=== PATIENT | female | born 1960 | race American Indian/Alaskan Native ===

== ENCOUNTER 2018-07-28 10:26 | Emergency (ER) | payer BC ==
[2018-07-28 10:56] VITALS: RESP 18
--- NOTE | 2018-07-28 11:31 | ED PDOC ---
Arrival/HPI - General Historian: Patient - History of Present Illness Narrative History of Present Illness (Text): 07/28/18 11:22 58yo female with pmhx of hypertension who present with complaint of generalized bodyache, nasal congestion, sore throat, nonproductive cough, fever, chills x 3days. States she took the Flu vaccine few weeks ago. Reports that she juct came back from [place]. Denies nausea, vomiting, abdominal pain, chest pain, urinary symptoms, sick contact, any other complaint. <Alicia Mix A - Last Filed: 07/28/18 15:50> <Julio Lincoln - Last Filed: 07/30/18 20:58> - General Chief Complaint: Flu-like Symptoms Time Seen by Provider: 07/28/18 10:54 Past Medical History - Provider Review Nursing Documentation Reviewed: Yes - Cardiac Hx Hypertension: Yes - Hematological/Oncological Hx Cancer: Yes (Left breast) - Psychiatric Hx Substance Use: No - Surgical History Hx Breast Biopsy: Yes (Left breast) Hx Hysterectomy: Yes Other/Comment: Left lumpectomy <Alicia Mix A - Last Filed: 07/28/18 15:50> Family/Social History - Physician Review Nursing Documentation Reviewed: Yes Family/Social History: Unknown Family HX Smoking Status: Never Smoked Hx Alcohol Use: No Hx Substance Use: No <Alicia Mix A - Last Filed: 07/28/18 15:50> Allergies/Home Meds <Alicia Mix A - Last Filed: 07/28/18 15:50> <Julio Lincoln - Last Filed: 07/30/18 20:58> Allergies/Adverse Reactions: Allergies Penicillins Allergy (Verified 07/28/18 11:02) ANAPHYLAXIS Home Medications: Home Meds Medication Instructions Recorded Confirmed Htn Med 07/28/18 RX: Aspirin [Aspirin Chewable] 81 mg PO DAILY 07/28/18 07/28/18 Review of Systems - Physician Review All systems were reviewed & negative as marked: Yes - Review of Systems Constitutional: Fatigue Eyes: Normal ENT: Other (Nasal congestion) Respiratory: Cough Cardiovascular: Normal Gastrointestinal: Normal Genitourinary Female: Normal Musculoskeletal: Normal Skin: Normal Neurological: Normal Endocrine: Normal Hemo/Lymphatic: Normal Psychiatric: Normal <Alicia Mix A - Last Filed: 07/28/18 15:50> Physical Exam Vital Signs Reviewed: Yes Vital Signs Temp Pulse Resp BP Pulse Ox 07/28/18 10:55 100.1 F H 96 H 18 146/83 98 Temperature: Febrile Blood Pressure: Normal Pulse: Regular Respiratory Rate: Normal Appearance: Positive for: Well-Appearing, Non-Toxic, Comfortable Pain Distress: None Mental Status: Positive for: Alert and Oriented X 3 - Systems Exam Head: Present: Atraumatic, Normocephalic Pupils: Present: PERRL Extroacular Muscles: Present: EOMI Conjunctiva: Present: Normal Mouth: Present: Moist Mucous Membranes Neck: Present: Normal Range of Motion Respiratory/Chest: Present: Clear to Auscultation, Good Air Exchange. No: Respiratory Distress, Accessory Muscle Use, Wheezes, Decreased Breath Sounds, Rales, Retracting, Rhonchi, Tachypneic Cardiovascular: Present: Regular Rate and Rhythm, Normal S1, S2. No: Murmurs Abdomen: No: Tenderness, Distention, Peritoneal Signs Back: Present: Normal Inspection Upper Extremity: Present: Normal Inspection. No: Cyanosis, Edema Lower Extremity: Present: Normal Inspection. No: Edema Neurological: Present: GCS=15, CN II-XII Intact, Speech Normal Skin: Present: Warm, Dry, Normal Color. No: Rashes Psychiatric: Present: Alert, Oriented x 3, Normal Insight, Normal Concentration <Diru,Happiness A - Last Filed: 07/28/18 15:50> Vital Signs Temp Pulse Resp BP Pulse Ox 07/28/18 12:41 98.1 F 75 18 148/85 97 07/28/18 12:39 98.1 F 07/28/18 10:55 100.1 F H 96 H 18 146/83 98 <Julio Lincoln - Last Filed: 07/30/18 20:58> Medical Decision Making ED Course and Treatment: 07/28/18 15:51 58yo female in ED with complaint of cough, fever, generalized bodyache, sore throat x 3days. She was febrile on presentation. Rapid strep and flu was negative. She had leukocytosis , likely secondary to viral syndrome CXR NAD Pt was placed on Tamiflu and Zpack. Advised to drink plenty of fluid and rest Referred to her PMD. TRT ED for any new or worsening symptoms - RAD Interpretation Radiology Orders: 07/28/18 11:18 CHEST TWO VIEWS (PA/LAT) [RAD] Stat - Medication Orders Current Medication Orders: Discontinued Medications Ibuprofen (Motrin Tab) 600 mg PO STAT STA Stop: 07/28/18 11:20 <Alicia Mix A - Last Filed: 07/28/18 15:50> - Lab Interpretations Microbiology Results: Microbiology Results 07/28/18 11:20 Throat Group A Strep Throat Culture - Final NO BETA STREP GROUP A ISOLATED. Lab Results: 07/28/18 12:30 07/28/18 12:58 Lab Results 07/28/18 12:58: Sodium 139, Potassium 3.4 L, Chloride 107, Carbon Dioxide 24, Anion Gap 11, BUN 12, Creatinine 0.7, Est GFR ( Amer) > 60, Est GFR (Non- Af Amer) > 60, Random Glucose 104, Calcium 9.1, Total Bilirubin 0.6, AST 20, ALT 21, Alkaline Phosphatase 94, Total Protein 8.1, Albumin 4.3, Globulin 3.8, Albumin/Globulin Ratio 1.1 07/28/18 12:30: PT 12.7 H, INR 1.10, APTT 39.3 H 07/28/18 12:30: WBC 14.2 H, RBC 4.59, Hgb 12.4, Hct 37.5, MCV 81.7, MCH 27.0, MCHC 33.1, RDW 14.8 H, Plt Count 295, MPV 9.4, Gran % 73.6 H, Lymph % (Auto) 20.7 L, [place] % (Auto) 3.9, Eos % (Auto) 1.5, Baso % (Auto) 0.3, Gran # 10.45 H, Lymph # (Auto) 2.9, [place] # (Auto) 0.6, Eos # (Auto) 0.2, Baso # (Auto) 0.04 07/28/18 11:20: Urine Color Yellow, Urine Appearance Clear, Urine pH 6.0, Ur Specific [place] 1.010, Urine Protein Negative, Urine Glucose (UA) Negative, Urine Ketones Negative, Urine Blood Trace-lysed H, Urine Nitrate Negative, Urine Bilirubin Negative, Urine Urobilinogen 0.2, Ur Leukocyte Esterase Negative, Urine RBC 0 - 2, Urine WBC 0 - 2, Ur Epithelial Cells 0 - 2, Urine Bacteria Few 07/28/18 11:20: Influenza Typ A,B (EIA) Negative for flu a/b, Grp A Beta Strep Ag Negative - RAD Interpretation Radiology Orders: 07/28/18 11:18 CHEST TWO VIEWS (PA/LAT) [RAD] Stat - Medication Orders Current Medication Orders: Discontinued Medications Azithromycin (Zithromax) 500 mg PO STAT STA; Protocol Stop: 07/28/18 12:59 Last Admin: 07/28/18 13:09 Dose: 500 mg Sodium Chloride (Sodium Chloride 0.9%) 1,000 mls @ 999 mls/hr IV .Q1H1M STA Stop: 07/28/18 13:16 Last Admin: 07/28/18 12:51 Dose: 999 mls/hr eMAR Start Stop Document 07/28/18 12:51 LA (Rec: 07/28/18 12:59 LA [id number]) Intravenous Solution Start Date 07/28/18 Start Time 12:51 End Date 07/28/18 End time 13:52 Total Infusion Time 61 Ibuprofen (Motrin Tab) 600 mg PO STAT STA Stop: 07/28/18 11:20 Last Admin: 07/28/18 11:39 Dose: 600 mg MAR Pain/Vitals Document 07/28/18 11:39 LA (Rec: 07/28/18 11:39 LA [id number]) Pain Reassessment Is This A Pain ReAssessment? No Sleep Is patient sleeping during reassessment? No Presence of Pain Presence of Pain Yes Pain Scale Used Protocol: PSCALES Pain Scale Used Numeric Location Pain Location Body Site Generalized Intensity 3 Scale Used Numeric Re-Assess: MAR Pain/Vitals Document 07/28/18 12:39 LA (Rec: 07/28/18 12:49 LA [id number]) Pain Reassessment Is This A Pain ReAssessment? No Sleep Is patient sleeping during reassessment? No Vitals Temperature (97.6 F-99.6 F) 98.1 F Temperature Source Oral Oseltamivir Phosphate (Tamiflu Cap) 75 mg PO ONCE STA; Protocol Stop: 07/28/18 12:59 Last Admin: 07/28/18 13:09 Dose: 75 mg Potassium Chloride (K-Dur 20 Meq Er Tab) 20 meq PO STAT STA Stop: 07/28/18 13:32 Last Admin: 07/28/18 13:41 Dose: 20 meq <Julio Lincoln - Last Filed: 07/30/18 20:58> - PA / ETHICAL HACKER / Resident Statement MD/DO has reviewed & agrees with the documentation as recorded. <Julio Lincoln - Last Filed: 07/30/18 20:58> Disposition/Present on Arrival - Present on Arrival Any Indicators Present on Arrival: No History of DVT/PE: No History of Uncontrolled Diabetes: No Urinary Catheter: No History of Decub. Ulcer: No History Surgical Site Infection Following: None - Disposition Have Diagnosis and Disposition been Completed?: Yes Disposition Time: 13:25 Patient Plan: Discharge <Alicia Mix - Last Filed: 07/28/18 15:50> <Julio Lincoln - Last Filed: 07/30/18 20:58> - Disposition Diagnosis: Flu-like symptoms, Viral syndrome Disposition: HOME/ ROUTINE Condition: STABLE Discharge Instructions (ExitCare): Viral Syndrome (DC) Additional Instructions: Drink plenty of fluid and rest Follow up with your Doctor Return to ED for any new or worsening symptoms Prescriptions: Azithromycin [Zithromax] 250 mg PO DAILY #4 tab Oseltamivir Phosphate [Tamiflu] 75 mg PO BID #10 capsule Referrals: Muna Wilcox MD [Medical Doctor] - Follow up with primary Forms: [employer] (Kinyarwanda)
[2018-07-28 11:50] LABS: URINE BILIRUBIN NEGATIVE (NEGATIVE); URINE BLOOD TRACE-LYSED (NEGATIVE); URINE GLUCOSE (UA) NEGATIVE (NEGATIVE); URINE LEUKOCYTE ESTERASE NEGATIVE Leu/uL (NEGATIVE); URINE PROTEIN NEGATIVE mg/dL (<30 mg/dL); URINE UROBILINOGEN 0.2 E.U./dL (<1 E.U./dL)
[2018-07-28 11:54] LABS: URINE APPEARANCE CLEAR (CLEAR); URINE COLOR YELLOW (YELLOW)
[2018-07-28 11:58] LABS: INFLUENZA A B NEGATIVE FOR FLU A/B (NEGATIVE)
[2018-07-28 12:06] LABS: URINE BACTERIA FEW (NEG); URINE EPITHELIAL CELLS 0 - 2 /hpf (0-5); URINE RBC 0 - 2 /hpf (0-2); URINE WBC 0 - 2 /hpf (0-6)
[2018-07-28] MEDS ORDERED: Sodium Chloride 0.9% 1,000 ML IV STA (12:16)
[2018-07-28 12:41] VITALS: BP 148/85; PULSE 75; TEMP 98.1; O2SAT 97
[2018-07-28 12:49] LABS: BASO # 0.04 K/mm3 (0.0-2.0); BASO % 0.3 % (0.0-3.0); EOS # 0.2 (0.0-0.7); EOS % 1.5 % (1.5-5.0); GRAN # 10.45 (1.4-6.5); GRAN % 73.6 % (50.0-68.0); HEMOGLOBIN 12.4 g/dL (12.0-16.0); LYMPH # 2.9 (1.2-3.4); LYMPH % 20.7 % (22.0-35.0); MEAN CELL VOLUME 81.7 fl (80.0-105.0); MEAN CORPUSCULAR HGB CONC 33.1 g/dl (31.0-37.0); MEAN PLATELET VOLUME 9.4 fl (7.0-11.0); MONO # 0.6 (0.1-0.6); MONO % 3.9 % (1.0-6.0); RBC 4.59 10^6/uL (3.5-6.1); RED CELL DISTRIBUTION WIDTH 14.8 % (11.5-14.5); WHITE BLOOD COUNT 14.2 10^3/ul (4.5-11.0)
--- NOTE | 2018-07-28 12:49 | RAD ---
Date of service: 07/28/2018 HISTORY: cough COMPARISON: No prior. TECHNIQUE: Chest PA and lateral FINDINGS: LUNGS: No active pulmonary disease. PLEURA: No significant pleural effusion identified. No pneumothorax apparent. CARDIOVASCULAR: No atherosclerotic calcification present No radiographic findings to suggest acute or significant cardiovascular disease. OSSEOUS STRUCTURES: No significant abnormalities. VISUALIZED UPPER ABDOMEN: Normal. OTHER FINDINGS: Left axillary surgical clips, findings consistent with prior mastectomy. IMPRESSION: No active disease.
[2018-07-28 12:54] LABS: INR 1.1; PARTIAL THROMBOPLASTIN TIME 39.3 Seconds (25.1-36.5); PROTHROMBIN TIME 12.7 SECONDS (9.4-12.5)
[2018-07-28 13:25] LABS: ALB/GLOB RATIO 1.1 (1.1-1.8); ALBUMIN 4.3 g/dL (3.0-4.8); ALT/SGPT 21 U/L (7-56); AST/SGOT 20 U/L (14-36); BLOOD UREA NITROGEN 12 mg/dL (7-21); CALCIUM 9.1 mg/dL (8.4-10.5); GFR NON-AFRICAN AMERICAN > 60
[2018-07-28] MEDS ORDERED: Potassium Chloride 20 mEq ER Tab PO STA (13:31)
== END 2018-07-28 13:50 | disposition home or self-care (01) ==
LOC: ED 10:26
DX: B34.9 Viral infection, unspecified (principal); J11.1 Influenza due to unidentified influenza virus with other respiratory manifestations; I10 Essential (primary) hypertension
CPT/HCPCS: 71046; 80053; 81001; 85025; 85610; 85730; 87070; 87430; 87804; 96360; 99283; J7030